=== PATIENT | male | born 1980 | race Two or more races ===

== ENCOUNTER 2021-10-08 11:41 | Emergency (ER) | payer MEDICAID ==
[~2021-10-08] VITALS: Ht 154.9 cm; Wt 180.0 kg
[2021-10-08 13:55] VITALS: BP 122/82
[2021-10-08] MEDS ORDERED: CEPH-509 PO (13:58)
[2021-10-08] MEDS ORDERED: NAPR500T31 PO (13:58)
== END 2021-10-08 14:03 | disposition home or self-care (01) ==
LOC: ER 11:58
DX: L03.032 Cellulitis of left toe (principal)
CPT/HCPCS: 10060